=== PATIENT | male | born 1995 | race Two or more races ===

== ENCOUNTER 2021-03-14 08:47 | Emergency (ER) | payer SELFPAY ==
[~2021-03-14] VITALS: Ht 177.8 cm; Wt 72.6 kg
[2021-03-14 08:52] VITALS: BP 143/77
== END 2021-03-14 10:08 | disposition home or self-care (01) ==
LOC: ER 08:47 → EDBD 08:47 → ER 10:08
DX: S80.02XA Contusion of left knee, initial encounter (principal); S00.83XA Contusion of other part of head, initial encounter; S50.312A Abrasion of left elbow, initial encounter; Z88.2 Allergy status to sulfonamides; V43.52XA Car driver injured in collision with other type car in traffic accident, initial encounter; Y93.89 Activity, other specified; Y92.410 Unspecified street and highway as the place of occurrence of the external cause; Y99.8 Other external cause status